=== PATIENT | male | born 1975 | race Caucasian/White ===

== ENCOUNTER 2017-08-25 19:34 | Inpatient (IN) | payer SELFPAY ==
[~2017-08-25] VITALS: Ht 177.8 cm; Wt 73.6 kg
[~2017-08-25 19:34] MED LIST: DAILY VITAMIN1 EAC8 PO; MELOXICAM15 MG PO; MOTRIN400 MG PO; PAROXETINE HCL20 MG PO; PERCOCET 10/1 TABLET PO; PERCOCET 5/31 TABLET PO; ZOLPIDEM TARTRA10 MG PO
[2017-08-25 19:49] LABS: BASOPHIL COUNT 0.1 K/uL (0-0.1); EOSINOPHIL (%) 2.3 % (0-5); EOSINOPHIL COUNT 0.3 K/uL (0-0.3); HEMATOCRIT 47.5 % (38.0-50.0); HEMOGLOBIN 16.3 G/DL (12.5-16.6); IMMATURE GRANULOCYTE (%) 0.6 % (0.0-0.7); LYMPHOCYTE (%) 33.3 % (15-42); MCH 31.3 PG (29.0-34.0); MCHC 34.3 G/DL (30.0-36.0); MCV 91.3 FL (86-99); MONOCYTE (%) 11.5 % (3-12); MONOCYTE COUNT 1.4 K/uL (0-0.8); NEUTROPHIL (%) 51.3 % (45-76); NEUTROPHIL COUNT 6.1 K/uL (1.8-6.4); PLATELET COUNT 236 K/uL (156-360); RBC DIS.WIDTH-CV 13.2 % (11.8-14.6); RBC DIS.WIDTH-SD 44.2 % (39-53); WHITE BLOOD COUNT 11.9 K/uL (4.1-10.2)
[2017-08-25 20:03] LABS: AMYLASE 159 IU/L (1-118); CHLORIDE 103 mEq/L (99-109); POTASSIUM 3.3 mEq/L (3.7-5.4); SODIUM 143 mEq/L (136-147)
[2017-08-25 20:05] LABS: GLUCOSE 109 mg/dL (70-99); INTER. NORMALIZED RATIO 0.9
[2017-08-25 20:08] LABS: PTT 30.9 SEC (25-37); SERUM ETHYL ALCOHOL 316 mg/dL
[2017-08-25 20:10] LABS: GFR ESTIMATE (CALCULATED) > 59 mL/min/ (58.99-99999); UREA NITROGEN (BUN) 16 mg/dL (9-23)
[2017-08-25 20:12] LABS: LIPASE 608 U/L (1.0-51.0)
[2017-08-25 20:21] LABS: TROP-I INTERPRETATION NEGATIVE; TROPONIN-I < 0.01 ng/mL (0.0-0.30)
[2017-08-25 20:28] LABS: APPEARANCE CLEAR ((CLEAR)); BILIRUBIN NEGATIVE; BLOOD MODERATE; COLOR STRAW ((YELLOW)); GLUCOSE (STRIP) NEGATIVE; KETONES NEGATIVE; LEUKOCYTES NEGATIVE; NITRITE NEGATIVE; PROTEIN (STRIP) NEGATIVE; SPECIFIC GRAVITY 1.004 (1.000-1.030); UROBILINOGEN 0.2 MG/DL (0.2-1.0)
[2017-08-25 20:34] LABS: BACTERIA NONE SEEN /HPF; EPITHELIAL CELLS RARE /HPF; MUCUS NONE SEEN /LPF; RED BLOOD CELLS 0-5 /HPF (0-5); UCUL ADDED? NO; WHITE BLOOD CELLS 0-5 /HPF (0-5)
[2017-08-25 20:46] LABS: AMPHETAMINE NEGATIVE (500 ng/mL); BARBITURATES NEGATIVE (200 ng/mL); BENZODIAZEPINES NEGATIVE (150 ng/mL); BUPRENORPHINE NEGATIVE (10 ng/mL); COCAINE NEGATIVE (150 ng/mL); METHADONE NEGATIVE (200 ng/mL); METHAMPHETAMINE NEGATIVE (500 ng/mL); OPIATES (MORPHINE) NEGATIVE (100 ng/mL); OXYCODONE NEGATIVE (100 ng/mL); PHENCYCLIDINE NEGATIVE (25 ng/mL); PROPOXYPHENE NEGATIVE (300 ng/mL); THC CANNABINOIDS NEGATIVE (50 ng/mL); TRICYCLIC ANTIDEPRESSANTS NEGATIVE (300 ng/mL)
[2017-08-25 21:27] LABS: BASE EXCESS -4.2 mEq/L (-3 to +3); CARBOXY HGB 5.5 % (0-5); COMMENTS - BLOOD GASES A+C+; DEVICE VENT; FI02 100 %; MECHANICAL RATE 14 resp/min; METHEMOGLOBIN 1.3 % (0-1.5); MODE AC; PCO2 56 mm Hg (35-45); PEEP 10 CM/H20; PO2 230 mm Hg (80-100); SITE LR; TIDAL VOLUME 500 ML; TOTAL RESP RATE 14 resp/min; pH 7.24 (7.35-7.45)
[2017-08-25 23:10] VITALS: BP 147/103
[2017-08-25 23:27] VITALS: BP 150/103
[2017-08-26] VITALS (23 sets, daily range): BP systolic 100–161; BP diastolic 66–100
[2017-08-26] MEDS ORDERED: METFORMIN HCL500 MG PO (10:11)
[2017-08-26] MEDS ORDERED: FLEXERIL10 MG PO (10:12)
[2017-08-26] MEDS ORDERED: ZYRTEC10 M3 PO (10:12)
[2017-08-26] MEDS ORDERED: CLONIDINE HCL0.2 MG PO (10:12)
[2017-08-26 17:29] LABS: BASOPHIL (%) 0.7 % (0-1); BASOPHIL COUNT 0.1 K/uL (0-0.1); EOSINOPHIL (%) 1.4 % (0-5); EOSINOPHIL COUNT 0.2 K/uL (0-0.3); HEMATOCRIT 39.6 % (38.0-50.0); IMMATURE GRANULOCYTE (%) 0.3 % (0.0-0.7); LYMPHOCYTE (%) 16.9 % (15-42); LYMPHOCYTE COUNT 1.8 K/uL (1.0-2.8); MCHC 32.8 G/DL (30.0-36.0); MCV 94.5 FL (86-99); NEUTROPHIL (%) 70.7 % (45-76); NEUTROPHIL COUNT 7.4 K/uL (1.8-6.4); PLATELET COUNT 178 K/uL (156-360); RBC DIS.WIDTH-CV 14.1 % (11.8-14.6); RED BLOOD COUNT 4.19 M/uL (4.00-5.50); WHITE BLOOD COUNT 10.4 K/uL (4.1-10.2)
[2017-08-26 17:49] LABS: ALBUMIN 3.6 G/DL (3.2-4.8); ALKALINE PHOSPHATASE 49 IU/L (3-129); ALT (GPT) 18 IU/L (3-49); AST (GOT) 25 IU/L (2-34); CHLORIDE 106 MEQ/L (99-109); CREATININE 0.9 MG/DL (0.6-1.3); GFR ESTIMATE (CALCULATED) > 59 mL/min/ (58.99-99999); GLUCOSE 105 mg/dL (70-99); MAGNESIUM 2.7 mg/dl (1.3-2.7); PHOSPHORUS 3.2 mg/dL (2.5-4.9); POTASSIUM 3.7 MEQ/L (3.7-5.4); SODIUM 139 MEQ/L (136-147); TOTAL BILIRUBIN 0.5 MG/DL (0.0-1.0); TOTAL PROTEIN 6.3 G/DL (6.4-8.3); UREA NITROGEN (BUN) 12 mg/dL (9-23)
[2017-08-27] VITALS (16 sets, daily range): BP systolic 115–163; BP diastolic 76–108
[2017-08-27 05:33] LABS: BASOPHIL (%) 0.3 % (0-1); EOSINOPHIL (%) 1.2 % (0-5); EOSINOPHIL COUNT 0.1 K/uL (0-0.3); HEMATOCRIT 40.4 % (38.0-50.0); HEMOGLOBIN 13.4 G/DL (12.5-16.6); IMMATURE GRANULOCYTE (%) 0.2 % (0.0-0.7); LYMPHOCYTE (%) 11.8 % (15-42); LYMPHOCYTE COUNT 1.4 K/uL (1.0-2.8); MCH 30.7 PG (29.0-34.0); MCHC 33.2 G/DL (30.0-36.0); MCV 92.4 FL (86-99); MONOCYTE (%) 8.8 % (3-12); MONOCYTE COUNT 1.1 K/uL (0-0.8); NEUTROPHIL (%) 77.7 % (45-76); NEUTROPHIL COUNT 9.4 K/uL (1.8-6.4); PLATELET COUNT 177 K/uL (156-360); RBC DIS.WIDTH-CV 13.3 % (11.8-14.6); RBC DIS.WIDTH-SD 45.1 % (39-53); RED BLOOD COUNT 4.37 M/uL (4.00-5.50); WHITE BLOOD COUNT 12.1 K/uL (4.1-10.2)
[2017-08-27 05:56] LABS: ALBUMIN 3.7 G/DL (3.2-4.8); ALKALINE PHOSPHATASE 55 IU/L (3-129); ALT (GPT) 20 IU/L (3-49); AST (GOT) 29 IU/L (2-34); CHLORIDE 104 MEQ/L (99-109); CREATININE 0.8 MG/DL (0.6-1.3); GFR ESTIMATE (CALCULATED) > 59 mL/min/ (58.99-99999); GLUCOSE 124 mg/dL (70-99); MAGNESIUM 2.6 mg/dl (1.3-2.7); PHOSPHORUS 2.7 mg/dL (2.5-4.9); POTASSIUM 3.9 MEQ/L (3.7-5.4); SODIUM 139 MEQ/L (136-147); TOTAL BILIRUBIN 0.5 MG/DL (0.0-1.0); TOTAL PROTEIN 6.3 G/DL (6.4-8.3); UREA NITROGEN (BUN) 11 mg/dL (9-23)
[2017-08-28] VITALS (8 sets, daily range): BP systolic 121–160; BP diastolic 62–101
[2017-08-28 05:41] LABS: BASOPHIL (%) 0.5 % (0-1); BASOPHIL COUNT 0.1 K/uL (0-0.1); EOSINOPHIL (%) 2.2 % (0-5); EOSINOPHIL COUNT 0.2 K/uL (0-0.3); HEMATOCRIT 41.2 % (38.0-50.0); HEMOGLOBIN 13.9 G/DL (12.5-16.6); IMMATURE GRANULOCYTE (%) 0.4 % (0.0-0.7); LYMPHOCYTE (%) 22.6 % (15-42); LYMPHOCYTE COUNT 2.3 K/uL (1.0-2.8); MCH 30.9 PG (29.0-34.0); MCHC 33.7 G/DL (30.0-36.0); MCV 91.6 FL (86-99); MONOCYTE (%) 7.9 % (3-12); MONOCYTE COUNT 0.8 K/uL (0-0.8); NEUTROPHIL (%) 66.4 % (45-76); NEUTROPHIL COUNT 6.8 K/uL (1.8-6.4); PLATELET COUNT 187 K/uL (156-360); RBC DIS.WIDTH-SD 42.9 % (39-53); WHITE BLOOD COUNT 10.3 K/uL (4.1-10.2)
[2017-08-28 06:59] LABS: MAGNESIUM 2.1 mg/dl (1.3-2.7)
[2017-08-29 04:13] VITALS: BP 133/91
[2017-08-29 06:21] LABS: MAGNESIUM 2.1 mg/dl (1.3-2.7); PHOSPHORUS 3.5 mg/dL (2.5-4.9)
[2017-08-29 07:42] VITALS: BP 140/86
[2017-08-29 11:28] VITALS: BP 147/83
[2017-08-29] MEDS ORDERED: MEDROL DOSEPAK4 MG PO (13:44)
[2017-08-29] MEDS ORDERED: CIPRODEX OTIC7.5 ML RIGHT EAR (13:44)
[2017-08-29] MEDS ORDERED: EYE DROP TEARS15 ML RIGHT EYE (14:00)
[2017-08-29] MEDS ORDERED: PERCOCET 5/31 TABLET PO (15:51)
== END 2017-08-29 16:50 | disposition home or self-care (01) | DRG 208 ==
LOC: TRA 19:34 → EDBD 19:34 → 4WEST 21:53 → EDOF 21:53 → 4WEST 21:53 → ENRESERV 21:58 → 4WEST 23:13 → ENRESERV 08-27 19:00 → 3EAST 08-27 21:05
PROVIDERS: Emergency Medicine; Internal Medicine; Internal Medicine Critical Care Medicine
DX: S27.321A Contusion of lung, unilateral, initial encounter (principal); S02.19XA Other fracture of base of skull, initial encounter for closed fracture; J96.90 Respiratory failure, unspecified, unspecified whether with hypoxia or hypercapnia; E87.2 Acidosis; G51.0 Bell's palsy; R04.0 Epistaxis; W10.9XXA Fall (on) (from) unspecified stairs and steps, initial encounter; J32.0 Chronic maxillary sinusitis; J32.2 Chronic ethmoidal sinusitis; F10.229 Alcohol dependence with intoxication, unspecified; Y90.8 Blood alcohol level of 240 mg/100 ml or more; I10 Essential (primary) hypertension; E11.9 Type 2 diabetes mellitus without complications; F32.9 Major depressive disorder, single episode, unspecified; G89.29 Other chronic pain; M54.9 Dorsalgia, unspecified; F17.200 Nicotine dependence, unspecified, uncomplicated; Z79.84 Long term (current) use of oral hypoglycemic drugs
CPT/HCPCS: 36600; 70450; 70486; 71045; 71260; 72040; 72125; 72129; 72132; 72170; 74177; 80048; 80053; 81003; 82150; 82803; 82948; 83690; 83735; 84100; 84484; 85025; 85610; 85730; 86850; 86900; 86901; 87641; 94002; 94003; 94760; 94799; G0480; J0295; J1100; J1170; J1885; J2060; J2250; J2704; J3010; J3411; J3475; J7030; J7050